=== PATIENT | female | born 2000 | race Caucasian/White ===

== ENCOUNTER 2018-10-04 10:51 | Emergency (ER) | payer MEDICAID ==
[~2018-10-04] VITALS: Ht 172.7 cm; Wt 74.8 kg
[2018-10-04 11:11] VITALS: BP_SYST 103
[2018-10-04 12:53] VITALS: BP_SYST 106
== END 2018-10-04 12:54 | disposition home or self-care (01) ==
LOC: SED 10:51
DX: J40 Bronchitis, not specified as acute or chronic (principal); Z88.2 Allergy status to sulfonamides
CPT/HCPCS: 71045; 99283